=== PATIENT | male | born 1965 | race Caucasian/White ===

== ENCOUNTER 2022-11-11 18:00 | Emergency (ER) | payer OTHER ==
--- OUTSIDE RECORDS SUMMARY | 2022-11-11 18:02 | XMS REPORT | Continuity of Care Document ---
:[address] [facility] t Address [address] [place] [id number] Care Team Providers Name Role Phone Luis M Cooper Attending Clinician Unavailable Problems This patient has no known problems. Allergies, Adverse Reactions, Alerts This patient has no known allergies or adverse reactions. Medications This patient has no known medications. Procedures This patient has no known procedures. Encounters Start End Encounter Admission Attending Care Care Encounter Source Date/Time Date/Time Type Type Clinicians Facility Department ID 2021-05-02 Outpatient KENDY Cooper [id number] Common 12:58:49 Luis M [id number] [facility] Results This patient has no known results.
[2022-11-11 18:49] LABS: Absolute Lymphocytes (CBC) 1.8 K/uL (0.7-4.9); Hematocrit 44.7 % (39.6-49.0); Lymphocytes % 21.5 % (15.3-44.8); MCV 93.2 fL (80-100); MPV 7.9 fL (7.6-11.3); Platelets 213 thou/uL (152-406)
[2022-11-11] MEDS ORDERED: MORPHINE 4 MG/ML SYR ONE (18:53)
[2022-11-11] MEDS ORDERED: KETOROLAC 30 MG/ML INJ ONE (18:53)
[2022-11-11] MEDS ORDERED: NA CHLORIDE 0.9% 1,000 ML ONE (18:54)
[2022-11-11] MEDS ORDERED: ONDANSETRON 4 MG/2 ML VIAL ONE (18:54)
[2022-11-11 19:06] LABS: Albumin 3.7 g/dL (3.4-5.0); Bilirubin Total 0.4 mg/dL (0.2-1.0); Potassium 3.6 mEq/L (3.5-5.1); Protein, Total 7.3 g/dL (6.4-8.2)
--- NOTE | 2022-11-11 19:13 | RAD REPORT ---
EXAM DESCRIPTION: CT - Stone Protocol - 11/11/2022 6:59 pm CLINICAL HISTORY: Abdominal pain. Left flank pain COMPARISON: None. TECHNIQUE: Computed axial tomography of the abdomen pelvis was obtained without oral or IV contrast. Lack of IV and oral contrast limits evaluation of solid organs, appendix, bowel, and vessels. Kasper l reformatted images were obtained and reviewed. All CT scans are performed using dose optimization technique as appropriate and may include automated exposure control or mA/KV adjustment according to patient size. FINDINGS: Multiple small left renal calculi. Mild left hydronephrosis. 6 millimeter calculus mid lef t ureter with stranding in the adjacent fat. 2 millimeter nonobstructing right renal calculus. The liver, spleen, pancreas and adrenals appear grossly normal There is no evidence of diverticulitis. Small left inguinal hernia contains fat. Small umbilical IMPRESSION: 6 millimeter calculus mid left ureter resulting in mild left hydronephrosis
[2022-11-11 21:27] LABS: Specific Gravity 1.013 (1.005-1.030); Urine Bacteria None Seen /HPF (<20); Urine Bilirubin NEGATIVE (Negative); Urine Blood 3+ (OVER) (Negative); Urine Clarity Clear (Clear); Urine Color Light-Yellow (Yellow); Urine Glucose NEGATIVE (Negative); Urine Mucus Slight /HPF (None Seen); Urine Protein NEGATIVE (Negative); Urine RBC >50 /HPF (None Seen); Urine Urobilinogen Normal (Normal); Urine pH 6.5 (5.0-7.0)
--- NOTE | 2022-11-11 21:44 | ER ---
Nurse's Notes [facility] Name: Rodrick Donato Age: 57 yrs Sex: Male : 1965 Arrival Date: 11/11/2022 Time: 18:00 Bed 7 Private MD: Jason Crowder V Diagnosis: Ureterolithiasis;Left Flank pain;Essential (primary) hypertension;Left ureteral calculus with mild left hydronephrosis Presentation: 11/11 18:25 Chief complaint: Patient states: LLQ pain that radiates down L testicle. Began at 1700 ss today. PT reports hx of kidney stones. Coronavirus screen: Client denies travel out of the [place] in the last 14 days. Ebola Screen: Patient denies exposure to infectious person. Patient denies travel to an Ebola-affected area in the 21 days before illness onset. Initial Sepsis Screen: Does the patient meet any 2 criteria? No. Patient's initial sepsis screen is negative. Does the patient have a suspected source of infection? No. Patient's initial sepsis screen is negative. Risk Assessment: Do you want to hurt yourself or someone else? Patient reports no desire to harm self or others. Onset of symptoms was November 11, 2022. 18:25 Method Of Arrival: Ambulatory ss 18:25 Acuity: LULU 2 ss Historical: - Allergies: 18:27 PENICILLINS; ss - PMHx: 18:27 Kidney stone; ss 18:27 Migraine; ss Screenin:04 [facility] ED Fall Risk Assessment (Adult) History of falling in the last 3 months, jb4 including since admission No falls in past 3 months (0 pts) Confusion or Disorientation No (0 pts) Score/Fall Risk Level 0 - 2 = Low Risk Oriented to surroundings, Maintained a safe environment. Abuse screen: Denies threats or abuse. Nutritional screening: No deficits noted. Tuberculosis screening: No symptoms or risk factors identified. Assessment: 18:43 General: Appears distressed, uncomfortable, Behavior is cooperative, restless. Pain: ss Complains of pain in left lower quadrant Pain currently is 10 out of 10 on a pain scale. Pain began 1.5 hours prior to arrival Is continuous. Neuro: Level of Consciousness is awake, alert, obeys commands. Respiratory: Airway is patent Respiratory effort is even, unlabored, Respiratory pattern is regular, symmetrical. Derm: Skin is intact, is healthy with good turgor, Skin is pink, warm \\T\\ dry. normal. 18:53 Reassessment: Pt appears more calm and comfortable at this time, pt states "it helped a aa5 little bit" after Morphine and Toradol administration. . 18:54 Reassessment: Pt to CT via stretcher . aa5 19:05 Reassessment: Patient is alert, oriented x 3, equal unlabored respirations, skin aa5 warm/dry/pink. Patient states feeling better. Patient states symptoms have improved. General: Appears comfortable, Behavior is calm, cooperative. 19:55 Reassessment: Patient appears in no apparent distress at this time. Patient and/or jb4 family updated on plan of care and expected duration. Pain level reassessed. Patient is alert, oriented x 3, equal unlabored respirations, skin warm/dry/pink. 21:00 Reassessment: Patient appears in no apparent distress at this time. Patient and/or jb4 family updated on plan of care and expected duration. Pain level reassessed. Patient is alert, oriented x 3, equal unlabored respirations, skin warm/dry/pink. 22:04 Reassessment: Patient appears in no apparent distress at this time. Patient and/or jb4 family updated on plan of care and expected duration. Pain level reassessed. Patient is alert, oriented x 3, equal unlabored respirations, skin warm/dry/pink. Vital Signs: 18:25 Pulse 80; Resp 22; Temp 97(TE); Pulse Ox 99% on R/A; Weight 105.23 kg; Height 5 ft. 9 ss in. ; Pain 10/10; 18:27 BP 141 / 85; ss 18:45 BP 137 / 93; Pulse 78; Resp 24 S; Pulse Ox 100% on R/A; aa5 19:55 BP 137 / 93; Pulse 87; Resp 16; Pulse Ox 97% on R/A; jb4 21:00 BP 121 / 68; Pulse 82; Resp 16; Pulse Ox 100% on R/A; jb4 18:25 Body Mass Index 34.26 (105.23 kg, 175.26 cm) ss 18:25 Pain Scale: Adult ss ED Course: 18:03 Patient arrived in ED. mr 18:03 Jason Crowder MD is Private Physician. mr 18:10 Bryce Werner DO is Attending Physician. ms3 18:27 Triage completed. ss 18:27 Arm band placed on left wrist. ss 18:42 Inserted saline lock: 20 gauge in right antecubital area, using aseptic technique. ss Blood collected. 19:01 Stone Protocol In Process Unspecified. EDMS 21:15 Attending Physician role handed off by Bryce Werner DO sp4 21:15 Conrado Rizo MD is Attending Physician. sp4 21:43 Payam Stanford MD is Referral Physician. sp4 22:04 Patient has correct armband on for positive identification. Bed in low position. Call jb4 light in reach. Side rails up X 1. Client placed on continuous cardiac and pulse oximetry monitoring. NIBP monitoring applied. barrel cleaner on. 22:04 No provider procedures requiring assistance completed. IV discontinued, intact, jb4 bleeding controlled, No redness/swelling at site. Pressure dressing applied. Administered Medications: 18:43 Drug: NS 0.9% IV 1000 ml Route: IV; Rate: 1 bolus; Site: right antecubital; aa5 18:43 Drug: Ondansetron IVP 4 mg Route: IVP; Site: right antecubital; aa5 18:54 Follow up: Response: No adverse reaction aa5 18:45 Drug: TORadol - Ketorolac IVP 15 mg Route: IVP; Site: right antecubital; aa5 18:54 Follow up: Response: Marked relief of symptoms aa5 18:45 Drug: morphine IVP or IV 4 mg Route: IVP; Infused Over: 4 mins; Site: right antecubital;aa5 18:53 Follow up: Response: Marked relief of symptoms aa5 21:51 Drug: Linwood PO 10 mg-325 mg 1 tabs Route: PO; jb4 21:51 Drug: Flomax PO 0.4 mg Route: PO; jb4 21:51 Drug: Promethazine PO 25 mg Route: PO; jb4 21:51 Drug: Ibuprofen PO 800 mg Route: PO; jb4 Medication: 18:43 VIS not applicable for this client. ss Outcome: 21:43 Discharge ordered by . sp4 22:04 Discharged to home ambulatory. jb4 22:04 Condition: stable 22:04 Discharge instructions given to patient, Instructed on discharge instructions, follow up and referral plans. medication usage, Demonstrated understanding of instructions, follow-up care, medications, Prescriptions given X 4. 22:05 Patient left the ED. jb4 Signatures: Dispatcher [employer] EDNE Lacey Higgins, Analilia, RN RN aa5 Abbey Panda, BENOIT RN Seymour Sage RN RN jb4 Bryce Werner DO DO ms3 Riley Jarrell RN RN rs5 Conrado Rizo MD MD sp4 Corrections: (The following items were deleted from the chart) 18:54 18:36 Riley Jarrell, RN is Primary Nurse. rs5 aa5
--- NOTE | 2022-11-11 21:44 | EDPHYS ---
Physician Documentation [facility] Name: Rodrick Donato Age: 57 yrs Sex: Male : 1965 Arrival Date: 11/11/2022 Time: 18:00 Bed 7 Private MD: Jason Crowder V ED Physician Conrado Rizo HPI: 11/11 18:53 This 57 yrs old Male presents to ER via Ambulatory with complaints of Back Pain, Groin ms3 Pain. 18:53 57-year-old male with past medical history of kidney stones and migraines presents for ms3 left flank and groin pain that began 1 hour prior to arrival. Patient rates his pain an 8/10 and describes it as "pain." Patient endorses nausea, vomiting, chills. Patient denies frequency or dysuria.. Historical: - Allergies: 18:27 PENICILLINS; ss - PMHx: 18:27 Kidney stone; ss 18:27 Migraine; ss ROS: 18:53 Constitutional: Negative for fever, and chills. Neck: Negative for injury, pain, and ms3 swelling, Cardiovascular: Negative for chest pain, and palpitations. Respiratory: Negative for shortness of breath, cough, wheezing, and pleuritic chest pain, Abdomen/GI: Negative for abdominal pain, nausea, vomiting, diarrhea, and constipation. 18:53 MS/Extremity: Negative for injury and deformity. 18:53 Back: Positive for flank pain, on the left. 18:53 All other systems are negative. Exam: 18:53 Constitutional: This is a well developed, well nourished patient who is awake, alert, ms3 and in no acute distress. Head/Face: Normocephalic, atraumatic. Neck: Trachea midline, no cervical lymphadenopathy. Supple, full range of motion without nuchal rigidity, or vertebral point tenderness. No Meningismus. Chest/axilla: Normal chest wall appearance and motion. Nontender with no deformity. Cardiovascular: Regular rate and rhythm with a normal S1 and S2. No gallops, murmurs, or rubs. Normal PMI, no JVD. No pulse deficits. Respiratory: Lungs have equal breath sounds bilaterally, clear to auscultation and percussion. No rales, rhonchi or wheezes noted. No increased work of breathing, no retractions or nasal flaring. Abdomen/GI: Soft, non-tender, with normal bowel sounds. No distension or tympany. No guarding or rebound. No evidence of tenderness throughout. Back: No spinal tenderness. No costovertebral tenderness. Full range of motion. Skin: Warm, dry with normal turgor. Normal color with no rashes, no lesions, and no evidence of cellulitis. MS/ Extremity: Pulses equal, no cyanosis. Neurovascular intact. Full, normal range of motion. Vital Signs: 18:25 Pulse 80; Resp 22; Temp 97(TE); Pulse Ox 99% on R/A; Weight 105.23 kg; Height 5 ft. 9 ss in. ; Pain 10/10; 18:27 BP 141 / 85; ss 18:45 BP 137 / 93; Pulse 78; Resp 24 S; Pulse Ox 100% on R/A; aa5 19:55 BP 137 / 93; Pulse 87; Resp 16; Pulse Ox 97% on R/A; jb4 21:00 BP 121 / 68; Pulse 82; Resp 16; Pulse Ox 100% on R/A; jb4 18:25 Body Mass Index 34.26 (105.23 kg, 175.26 cm) ss 18:25 Pain Scale: Adult ss MDM: 18:24 Patient medically screened. ms3 18:55 Differential diagnosis: Neoplasm sprain, Ureterolithiasis. ms3 21:03 Data reviewed: vital signs, nurses notes, lab test result(s), radiologic studies, and ms3 as a result, I will discharge patient. I considered the following discharge prescriptions or medication management in the emergency department Medications were administered in the Emergency Department. See MAR. Counseling: I had a detailed discussion with the patient and/or guardian regarding: the historical points, exam findings, and any diagnostic results supporting the discharge/admit diagnosis, lab results, radiology results, the need for outpatient follow up, to return to the emergency department if symptoms worsen or persist or if there are any questions or concerns that arise at home. Response to treatment: the patient's symptoms have markedly improved after treatment, and as a result, I will discharge patient. Special discussion: I discussed with the patient/guardian in detail that at this point there is no indication for admission to the hospital. It is understood, however, that if the symptoms persist or worsen the patient needs to return immediately for re-evaluation. 11/11 18:25 Order name: CBC with Diff; Complete Time: 19:23 ms3 11/11 18:25 Order name: CMP; Complete Time: 19:23 ms3 11/11 18:25 Order name: Lipase; Complete Time: 19:23 ms3 11/11 18:25 Order name: Urinalysis w/ reflexes; Complete Time: 21:31 ms3 11/11 18:34 Order name: Stone Protocol; Complete Time: 19:23 EDMS 11/11 18:25 Order name: IV Saline Lock; Complete Time: 18:42 ms3 11/11 18:25 Order name: Labs collected and sent; Complete Time: 18:42 ms3 Administered Medications: 18:43 Drug: NS 0.9% IV 1000 ml Route: IV; Rate: 1 bolus; Site: right antecubital; aa5 18:43 Drug: Ondansetron IVP 4 mg Route: IVP; Site: right antecubital; aa5 18:54 Follow up: Response: No adverse reaction aa5 18:45 Drug: TORadol - Ketorolac IVP 15 mg Route: IVP; Site: right antecubital; aa5 18:54 Follow up: Response: Marked relief of symptoms aa5 18:45 Drug: morphine IVP or IV 4 mg Route: IVP; Infused Over: 4 mins; Site: right antecubital;aa5 18:53 Follow up: Response: Marked relief of symptoms aa5 21:51 Drug: [employer] PO 10 mg-325 mg 1 tabs Route: PO; jb4 21:51 Drug: Flomax PO 0.4 mg Route: PO; jb4 21:51 Drug: Promethazine PO 25 mg Route: PO; jb4 21:51 Drug: Ibuprofen PO 800 mg Route: PO; jb4 Disposition Summary: 11/11/22 21:43 Discharge Ordered Location: Home sp4 Problem: new sp4 Symptoms: have improved sp4 Condition: Stable sp4 Diagnosis - Ureterolithiasis sp4 - Left Flank pain sp4 - Essential (primary) hypertension sp4 - Left ureteral calculus with mild left hydronephrosis sp4 Followup: ms3 - With: - When: 2 - 3 days - Reason: Recheck today's complaints Discharge Instructions: - Discharge Summary Sheet ms3 - Kidney Stones, [id number] ms3 Forms: - Patient Portal Instructions sp4 Prescriptions: - ketorolac 10 mg Oral tablet - take 1 tablet by ORAL route every 6 hours for 5 days as needed for pain; 30 sp4 tablet; Refills: 0, Product Selection Permitted - ondansetron 4 mg Oral Tablet,disintegrating - take 1 tablet by ORAL route every 6 hours for 24 hours PRN nausea; 30 tablet; sp4 Refills: 0, Product Selection Permitted - acetaminophen-codeine 300-60 mg Oral tablet - take 1 tablet by ORAL route every 6 hours PRN pain; 12 tablet; Refills: 0, sp4 Product Selection Permitted - tamsulosin 0.4 mg Oral capsule - take 1 capsule by ORAL route every 24 hours take daily for 30 days; 30 capsule; sp4 Refills: 0, Product Selection Permitted Signatures: Dispatcher [employer] EDMS Analilia Fonseca, RN RN aa5 Abbey Panda RN RN ss Seymour Baron RN RN jb4 Bryce Werner DO DO ms3 Conrado Rizo MD MD sp4 Corrections: (The following items were deleted from the chart) 18:34 18:25 Abdomen Pelvis Wo [id number] ordered. EDMS EDMS
[2022-11-11] MEDS ORDERED: TAMSULOSIN 0.4 MG SR CAP ONE (21:57)
[2022-11-11] MEDS ORDERED: HYDROCODONE/APAP 10/325 TAB ONE (21:57)
[2022-11-11] MEDS ORDERED: PROMETHAZINE 25 MG TABLET ONE (21:57)
[2022-11-11] MEDS ORDERED: IBUPROFEN 400 MG TAB ONE (21:58)
[2022-11-11 23:02] VITALS: TEMP 97
[2022-11-11 23:15] VITALS: BP 121/68; O2SAT 100
== END 2022-11-11 22:05 | disposition home or self-care (01) ==
LOC: ER 18:00
DX: N20.1 Calculus of ureter (principal); Z87.442 Personal history of urinary calculi; N13.30 Unspecified hydronephrosis; Z88.0 Allergy status to penicillin
CPT/HCPCS: 85025; 81001; 36415; 83690; 80053; 76377; 74176; 96375; 96374; 99285; Q0169; J2405; J7030

== ENCOUNTER 2022-11-22 08:12 | Day surgery (SDC) | payer OTHER ==
[2022-11-22] MEDS ORDERED: CIPROFLOXACIN HCL 500 MG TAB ONE (09:03)
[2022-11-22] MEDS ORDERED: Ringers Lactate 1,000 ML IV ONE (09:03)
[2022-11-22] MEDS ORDERED: FENTANYL CITR 100 MCG/2 ML ONE ×2 (09:51→10:10)
[2022-11-22] MEDS ORDERED: MIDAZOLAM HCL 2 MG/2 ML INJ ONE (10:10)
[2022-11-22] MEDS ORDERED: propofoL 200 MG/20 ML VIAL IV ONE (10:10)
[2022-11-22] MEDS ORDERED: ONDANSETRON 4 MG/2 ML VIAL ONE (10:11)
[2022-11-22] MEDS ORDERED: LIDOCAINE 1% MPF 5 ML VIAL ONE (10:11)
[2022-11-22] MEDS ORDERED: dexAMETHasone 10 MG/ML VIAL ONE (10:48)
--- NOTE | 2022-11-22 11:36 | P.OP ---
Date of Service: 11/22/22 Preoperative diagnoses: 1. Right ureterolithiasis 2. Acute kidney injury 3. Intractable nausea and vomiting 4. Intractable pain 5. Right hydronephrosis Postoperative diagnoses: As above Principal procedures: Cystoscopy with foreign body (ureteral calculus) extraction from within the bladder Left retrograde pyelography Left tethered ureteral stent placement 6 x 26 [place] Indication for procedure: 57-year-old gentleman with history of migraines headaches on topiramate and mood disorder presented with left flank pain, nephroureterolithiasis, and signs of acute kidney injury and a recurrent stone former who progressed to intractable pain as well as nausea and vomiting ultimately desiring intervention. Procedure note: The patient was consented in the preoperative holding area, where he required fentanyl for the pain, before being transferred to the operative suite where general anesthesia was induced. He had been given a dose of ciprofloxacin 500 mg oral antimicrobial prophylaxis on arrival to preop. Pneumoboots were provided for DVT prophylaxis. He was placed in the lithotomy position, padded and secured to the table appropriately. His genitalia was prepped with Hibiclens and he was draped in standard fashion. The case was begun using a 22 [place] rigid cystoscope to traverse the urethra and into the bladder with ease. The bladder was decompressed of fluid and urine, and then refilled with sterile saline and surveyed. The ureteral orifice ease were orthotopic in location, and immediately, I noted there was the presence of gross hematuria from the left ureteral orifice. Next to the ureteral orifice, there was a bladder calculus likely around 5 or 6 mm or greater in size consistent with recently passed ureterolithiasis. As a result, I attempted to cannulate the left ureteral orifice which was somewhat edematous from the recent stone passage suspected; so I utilized the sensor wire tip to guide access into the ureteral orifice with a 5 [place] ureteral access catheter and then performed a retrograde pyelogram. Left retrograde pyelography: Using a 70: 30 mixture of Omnipaque and saline, contrast was injected via the lumen of the 5 [place] ureteral access catheter and did propagate up a nondilated collecting system without filling defect or radiopaque calculus noted before entering the renal pelvis and calyces with only minimal pelvocaliectasis initially noted. As a result, I passed a sensor wire up into the upper pole calyx and reviewed the CT imaging again identifying the presence of the solitary ureteral calculus associated with some punctate Ventura's plaques within the left kidney. As a result, with clear evidence that he likely passed the stone, I again surveyed the collecting system which had completely decompressed of contrast and there was no evidence of hydroureteronephrosis. As a result, I passed a 6 [place] by 26 cm double-J ureteral stent over the sensor wire into his upper pole calyx with a coil observed fluoroscopically and 1 cystoscopically formed in the bladder. The stent was left tethered to its string; so after decompressing his bladder of fluid and urine and retrieving the calculus, which was sent for chemical analysis, I then secured the string of the stent to his glans penis using Mastisol and Steri-Strips. He was then awakened from general anesthesia before being transferred to a stretcher and then transferred to the recovery room in good condition. Complications: None Discharge disposition: As he is a recurrent stone former, he will require definitive metabolic evaluation. As a result, I recommend he follow-up in 1 to 2 months for metabolic profile assessment via Litholink x2 with blood work. With regard to his tethered ureteral stent, if he is comfortable removing it himself tomorrow at home, he may certainly do so. If not, he will have to follow-up on Friday in the urology clinic for tethered ureteral stent extraction. He may be given a dose of Macrobid or Bactrim at the time of that stent extraction if done on Friday.
--- NOTE | 2022-11-22 11:37 | RAD REPORT ---
EXAM DESCRIPTION: RAD - Urethrocystogrphy Retrograde - 11/22/2022 11:08 am CLINICAL HISTORY: LT STENT COMPARISON: No comparisons FINDINGS/IMPRESSION: Eight intraoperative fluoroscopic images showing cannulation of the left ureter and placement of a ureteral stent. Fluoro time: 0.10 minutes
[2022-11-22 11:38] VITALS: TEMP 97.2; O2SAT 93
[2022-11-22 11:51] VITALS: BP 128/82
[2022-11-22] MEDS ORDERED: PHENAZOPYRIDINE 100MG TAB PO ONE (11:52)
--- NOTE | 2022-11-22 13:55 | EKG ---
Test Date: 2022-11-22 Test Time: 08:28:01 Director Of Analytical Development: STALIN MEASUREMENT RESULTS: Intervals: Rate: 83 VT: 146 QRSD: 72 QT: 366 QTc: 430 [place]: P: 59 VT: 146 QRS: 27 T: 31 INTERPRETIVE STATEMENTS: Normal sinus rhythm Possible Left atrial enlargement Borderline ECG No previous ECG available for comparison Electronically Signed On 11-22-22 13:54:43 CDT by Jerrod Vega
== END 2022-11-22 12:28 | disposition home or self-care (01) ==
LOC: OR 08:12
PROVIDERS: ATTEND Urology
PROC: 0T778DZ Dilation of Left Ureter with Intraluminal Device, Via Natural or Artificial Opening Endoscopic (ICD-10-PCS; 2022-11-22)
PROC: 0TCB8ZZ Extirpation of Matter from Bladder, Via Natural or Artificial Opening Endoscopic (ICD-10-PCS; principal; 2022-11-22 10:00)
DX: N20.1 Calculus of ureter (principal); N17.9 Acute kidney failure, unspecified; N13.30 Unspecified hydronephrosis; R11.2 Nausea with vomiting, unspecified; R52 Pain, unspecified
CPT/HCPCS: 51610; 74450; 82360; 87086; 87088; 93005; J1100; J2001; J2250; J2405; J2704; J3010; J7120